=== PATIENT | male | born 1980 | race Caucasian/White ===

== ENCOUNTER → 2016-04-12 | Outpatient (CLI) | payer BC | LOC: RAD 09:19 | DX: R06.02 Shortness of breath (principal); J20.8 Acute bronchitis due to other specified organisms ==

== ENCOUNTER 2020-11-13 19:16 | Emergency (ER) | payer OTHER ==
[2020-11-13] MEDS ORDERED: CITALOPRAM HBR10 MG PO (19:58)
[2020-11-13] MEDS ORDERED: PROTONIX20 M1 PO (19:58)
[2020-11-13] MEDS ORDERED: PREDNISONE20 M1 PO (19:59)
[2020-11-13] MEDS ORDERED: AZITHROMYCIN 250MGPK PO (19:59)
[2020-11-13] MEDS ORDERED: ACETAMINOPHEN-H1 TA2 PO (19:59)
[2020-11-13 21:26] VITALS: BP 134/93
== END 2020-11-13 21:30 | disposition home or self-care (01) ==
LOC: ED 19:16
DX: J18.9 Pneumonia, unspecified organism (principal); K76.0 Fatty (change of) liver, not elsewhere classified; Z20.822 Contact with and (suspected) exposure to COVID-19
CPT/HCPCS: Q9967

== ENCOUNTER → 2020-11-13 | Outpatient (CLI) | payer OTHER ==
[~2020-11-13] MED LIST: ACETAMINOPHEN-H1 TA2 PO; AZITHROMYCIN 250MGPK PO; CITALOPRAM HBR10 MG PO; PREDNISONE20 M1 PO; PROTONIX20 M1 PO
[2020-11-13 17:30] LABS: BASO # 0.04 (0.02-0.10); EOS % 0.9 % (0.0-4.0); HEMATOCRIT 46.2 % (42.0-52.0); HEMOGLOBIN 15.3 g/dL (13.5-18.0); LYMPH# 2.52 (1.50-4.00); MEAN CELL VOLUME 84 fl (78-100); MEAN CORPUSCULAR HEMOGLOBIN 28 pg (27-31); MEAN CORPUSCULAR HGB CONC 33 g/dL (33-37); MEAN PLATELET VOLUME 8.6 fl (7.4-10.4); MONO # 1.38 (0.20-0.80); NEU # 7.59 (1.40-6.50); PLATELET COUNT 311 K/mm3 (130-400); RED BLOOD COUNT 5.53 M/mm3 (4.20-5.60); RED CELL DISTRIBUTION WIDTH 12.2 % (11.5-14.5); WHITE BLOOD COUNT 11.7 K/mm3 (4.8-10.8)
[2020-11-13 17:42] LABS: ALBUMIN 4.4 g/dL (3.5-5.0)
[2020-11-13 17:43] LABS: POTASSIUM 3.6 mmol/L (3.5-5.1); SODIUM 139 mmol/L (136-145)
[2020-11-13 17:45] LABS: GLUCOSE 104 mg/dL (75-110)
[2020-11-13 17:46] LABS: CARBON DIOXIDE 25 mmol/L (22-29)
[2020-11-13 17:50] LABS: AST-SGOT 25 U/L (5-34)
[2020-11-13 17:51] LABS: ALT/SGPT 51 U/L (0-55)
[2020-11-13 18:11] LABS: D-DIMER 0.94 mg/L FEU (0.15-0.50)
[2020-11-13 19:49] LABS: TROPONIN-I < 0.03 ng/mL (<0.030)
== END ==
LOC: AMSURD 17:10
PROVIDERS: Nurse Practitioner Primary Care
DX: R07.9 Chest pain, unspecified (principal)

== ENCOUNTER → 2021-02-08 | Outpatient (CLI) | payer OTHER ==
[2021-02-08 11:53] LABS: BASO # 0.07 K/mm3 (0.02-0.10); EOS # 0.06 K/mm3 (0.04-0.40); EOS % 0.6 % (0.0-4.0); HEMATOCRIT 49.2 % (42.0-52.0); HEMOGLOBIN 16.5 g/dL (13.5-18.0); LYMPH# 2.57 K/mm3 (1.50-4.00); MEAN CELL VOLUME 84 fl (78-100); MEAN CORPUSCULAR HEMOGLOBIN 28 pg (27-31); MEAN CORPUSCULAR HGB CONC 34 g/dL (33-37); MEAN PLATELET VOLUME 8.3 fl (7.4-10.4); MONO # 0.65 K/mm3 (0.20-0.80); NEU # 5.98 K/mm3 (1.40-6.50); PLATELET COUNT 288 K/mm3 (130-400); RED BLOOD COUNT 5.88 M/mm3 (4.20-5.60); RED CELL DISTRIBUTION WIDTH 13.6 % (11.5-14.5); WHITE BLOOD COUNT 9.4 K/mm3 (4.8-10.8)
[2021-02-08 12:02] LABS: ALBUMIN 4.7 g/dL (3.5-5.0); POTASSIUM 4.1 mmol/L (3.5-5.1)
[2021-02-08 12:03] LABS: CALCIUM 10.2 mg/dL (8.3-10.5)
[2021-02-08 12:05] LABS: TOTAL PROTEIN 8.3 g/dL (6.4-8.3)
[2021-02-08 12:06] LABS: TOTAL BILIRUBIN 1.1 mg/dL (0.2-1.2)
== END ==
LOC: LAB 11:39
PROVIDERS: Internal Medicine
DX: Z00.00 Encounter for general adult medical examination without abnormal findings (principal)

== ENCOUNTER → 2023-03-11 | Outpatient (CLI) | payer OTHER ==
[2023-03-12 20:53] LABS: TB GOLD INTERPRETATION.TB GOLD Negative (Negative)
== END ==
LOC: LAB 15:07
PROVIDERS: Dermatology MOHS-Micrographic Surgery
DX: L40.9 Psoriasis, unspecified (principal)

== ENCOUNTER → 2023-12-02 | Outpatient (CLI) | payer OTHER ==
[2023-12-02 14:47] LABS: BASO # 0.05 K/mm3 (0.02-0.10); EOS # 0.08 K/mm3 (0.04-0.40); EOS % 0.7 % (0.0-4.0); HEMATOCRIT 54.1 % (42.0-52.0); LYMPH# 3.22 K/mm3 (1.50-4.00); MEAN CELL VOLUME 82 fl (78-100); MEAN CORPUSCULAR HEMOGLOBIN 27 pg (27-31); MEAN CORPUSCULAR HGB CONC 33 g/dL (33-37); MEAN PLATELET VOLUME 8.6 fl (7.4-10.4); MONO # 0.76 K/mm3 (0.20-0.80); NEU # 7.23 K/mm3 (1.40-6.50); PLATELET COUNT 284 K/mm3 (130-400); RED BLOOD COUNT 6.61 M/mm3 (4.20-5.60); RED CELL DISTRIBUTION WIDTH 12.9 % (11.5-14.5); WHITE BLOOD COUNT 11.4 K/mm3 (4.8-10.8)
[2023-12-02 14:50] LABS: ALBUMIN 4.6 g/dL (3.5-5.0); SODIUM 141 mmol/L (136-145)
[2023-12-02 14:51] LABS: CALCIUM 9.8 mg/dL (8.3-10.5)
[2023-12-02 14:52] LABS: GLUCOSE 116 mg/dL (75-110)
[2023-12-02 14:53] LABS: TOTAL PROTEIN 7.4 g/dL (6.4-8.3)
[2023-12-02 14:54] LABS: CARBON DIOXIDE 22 mmol/L (22-29); TOTAL BILIRUBIN 0.6 mg/dL (0.2-1.2)
[2023-12-02 14:58] LABS: AST-SGOT 35 U/L (5-34)
[2023-12-02 14:59] LABS: ALT/SGPT 48 U/L (0-55)
[2023-12-02 15:15] LABS: TROPONIN-I < 0.030 ng/mL (0.00-0.033)
== END ==
LOC: LAB 14:17
PROVIDERS: Nurse Practitioner Family
DX: E34.9 Endocrine disorder, unspecified (principal); R06.02 Shortness of breath